=== PATIENT | male | born 1975 | race Native Hawaiian/Other Pacific Islander ===

== ENCOUNTER 2017-07-23 19:18 | Outpatient (CLI) | payer OTHER | END 2017-07-23 19:23 | disposition short-term general hospital (02) | LOC: AMB 19:18 | DX: R07.89 Other chest pain (principal) | CPT/HCPCS: A0425; A0427 ==

== ENCOUNTER 2017-07-23 19:24 | Emergency (ER) | payer OTHER ==
[~2017-07-23] VITALS: Ht 172.7 cm; Wt 77.1 kg
[2017-07-23 19:49] VITALS: BP 125/95; TEMP 97.8
[2017-07-23 20:19] LABS: POTASSIUM 3.3 mmol/L (3.6-5.2)
[2017-07-23 20:43] LABS: PARTIAL THROMBOPLASTIN TIME 25.8 SECONDS (24.5-33.6)
== END 2017-07-23 22:52 | disposition left against medical advice (07) ==
LOC: ED 19:24
PROVIDERS: Specialist
DX: R07.89 Other chest pain (principal); R00.1 Bradycardia, unspecified
CPT/HCPCS: 36415; 80053; 83735; 84100; 84484; 85379; 85610; 85730; 93005; 96374; 96375; 99284; J2270; J2405

== ENCOUNTER 2017-09-26 09:25 | Outpatient (CLI) | payer OTHER | END 2017-09-26 18:17 | disposition home or self-care (01) | LOC: RESP 09:25 | DX: R07.89 Other chest pain (principal); R06.02 Shortness of breath; R00.2 Palpitations | CPT/HCPCS: 93306 ==

== ENCOUNTER 2017-10-03 08:12 | Outpatient (CLI) | payer OTHER | END 2017-10-03 19:37 | disposition home or self-care (01) | LOC: MRI 08:12 | DX: M54.2 Cervicalgia (principal); M79.602 Pain in left arm ==